=== PATIENT | male | born 1985 | race Caucasian/White ===

== ENCOUNTER 2018-09-18 09:14 | Emergency (ER) | payer MEDICAID ==
[~2018-09-18] VITALS: Ht 175.3 cm; Wt 83.9 kg
--- NOTE | 2018-09-18 09:14 | NUR ---
PT [facility] BLS TO ER BED 09
[2018-09-18 09:17] VITALS: BP 130/73
--- NOTE | 2018-09-18 09:26 | NUR ---
BIB EMS C/O LOW BLOOD SUGAR 55, 77, THEN 133 AFTER ORAL GLUCOSE IN FIELD. NOW 112 AT TIME OF TRIAGE. PT A&OX4. BREATHING EVEN AND UNLABORED. SKIN WARM, PINK, AND DRY. NSR ON HEAD BANQUET WAITER/WAITRESS. DENIES CP/SOB/PAIN. C/O DIZZINESS. STS "I WAS AT [facility]S ASKING FOR FOOD, BUT NO ONE WOULD GIVE ME ANY, SO I CALLED 911." PT STS THAT HE IS HOMELESS AND HAS BEEN WALKING "FOR A WHILE." DR. TORRES AT BEDSIDE TO EVALUATE PT.
--- NOTE | 2018-09-18 09:27 | NUR ---
PT GIVEN HOMELESS COMMUNITY RESOURCE LIST, HYGIENE PACK, AND MEAL.
--- NOTE | 2018-09-18 09:41 | NUR ---
EKG IN PROGRESS
[2018-09-18 09:59] LABS: BASOPHILS % (AUTO) 0.7 % (0.0-2.0); EOSINOPHILS # (AUTO) 0.1 K/uL (0-0.4); EOSINOPHILS % (AUTO) 1.5 % (0.0-4.0); HEMATOCRIT 44.9 % (36-52); LYMPHOCYTES # (AUTO) 1.2 K/uL (2.0-11.5); LYMPHOCYTES % (AUTO) 20.3 % (20.5-51.1); MEAN CORPUSCULAR HEMOGLOBIN 30 pg (27-31); MEAN CORPUSCULAR HGB CONC 33 g/dL (33-37); MEAN CORPUSCULAR VOLUME 91.3 fL (80-94); MONOCYTES # (AUTO) 0.4 K/uL (0.8-1.0); MONOCYTES % (AUTO) 6.5 % (1.7-9.3); NEUTROPHILS # (AUTO) 4.3 K/uL (1.8-7.7); PLATELET COUNT (AUTO) 327 K/uL (140-450); RED BLOOD CELL COUNT(AUTO) 4.92 MIL/uL (4.20-6.10); RED CELL DISTRIBUTION WIDTH 13.5 % (11.6-13.7); WHITE BLOOD COUNT (AUTO) 6.1 K/uL (4.8-10.8)
[2018-09-18 10:08] LABS: ALBUMIN 3.7 g/dL (3.4-5.0); ANION GAP 8.4 (8-16); CARBON DIOXIDE 31.8 mmol/L (21-32); CREATININE 1.2 mg/dL (0.7-1.3); POTASSIUM 4.2 mmol/L (3.5-5.1); TOTAL BILIRUBIN 0.8 mg/dL (0.0-1.0)
--- NOTE | 2018-09-18 10:10 | NUR ---
PT CONSUMED 95% OF MEAL. DIZZINESS DECREASED. PT AMBULATED TO RESTROOM AND BACK TP [facility] WITH STEADY GAIT. URINE SPECIMEN SENT TO LAB.
[2018-09-18 10:30] LABS: BARBITURATE, URINE NEG. ng/ml (NEG <=200); BENZODIAZEPINE, URINE NEG. ng/mL (NEG <=200); CANNABINOID, URINE NEG. ng/mL (NEG <=50); COCAINE, URINE NEG. ng/mL (NEG <=300); OPIATE, URINE NEG. ng/mL (NEG <=2000); PHENCYCLIDINE SCREEN,URINE NEG. ng/mL (NEG <=25)
--- NOTE | 2018-09-18 10:44 | NUR ---
PT RE-EVALUATED BY DR. TORRES. SUGARCANE PLANTER CALLED TO SPEAK TO PT. PT STS HE IS HOMELESS AND HAS NO PLACE TO GO.
--- NOTE | 2018-09-18 11:02 | NUR ---
CALLED MOLDER OFFBEARER AGAIN. SPOKE TO MENDEZ. JAIDEN IS AWARE OF PT'S CONSULT.
--- NOTE | 2018-09-18 11:18 | NUR ---
CALLED SCUTCHER TENDER AGAIN. MENDEZ WILL CALL JAIDEN DIRECTLY. PT AWAITING CONSULT.
--- NOTE | 2018-09-18 11:25 | NUR ---
PT DENIES DIZZINESS. AMBULATED TO RESTROOM AND BACK TO [facility] WITH STEADY GAIT. AWAITING COTTON WASHER CONSULT.
--- NOTE | 2018-09-18 11:29 | NUR ---
[employer] CRISTOFER AT BESIDE.
--- NOTE | 2018-09-18 11:43 | NUR ---
Patient given written and verbal discharge instructions and verbalizes understanding. Given copies of tests performed during visit. Patient is awake, alert and oriented X4. Ambulatory with steady gait. Refuses offer of snf placement. Given list of available shelters in surrounding areas.
--- NOTE | 2018-09-18 11:44 | NUR ---
BUS PASS WAS GIVEN TO PT.
[2018-09-18 11:45] VITALS: BP 110/89
== END 2018-09-18 11:43 | disposition home or self-care (01) ==
LOC: MED 09:14
DX: E16.2 Hypoglycemia, unspecified (principal); F17.200 Nicotine dependence, unspecified, uncomplicated; R03.0 Elevated blood-pressure reading, without diagnosis of hypertension; R94.31 Abnormal electrocardiogram [ECG] [EKG]; Z98.890 Other specified postprocedural states
CPT/HCPCS: 36415; 80053; 80305; 82948; 85025; 93005; 99284

== ENCOUNTER 2018-09-18 18:26 | Emergency (ER) | payer MEDICAID ==
[~2018-09-18] VITALS: Ht 177.8 cm; Wt 81.6 kg
[2018-09-18 18:35] VITALS: BP 134/86
--- NOTE | 2018-09-18 18:37 | NUR ---
TRIAGED TO LOBBY VIA WHEELCHAIR. VSS, NOT IN DISTRESS
--- NOTE | 2018-09-18 20:02 | NUR ---
PT TO ED WITH C/O "CHRONIC DIZZINESS" PT REPORTS BEING SEEN ED EARLIER TODAY AND DX WITH HYPOGLYCEMIA. PT APPEARS TO BE VERY ANXIOUS, STATING "WILL I BECAUSE OF THIS" PT REASSURED THAT HE IS STABLE AT THIS TIME. REMAINS ON CARDIAC MONITORING. PT IN BED, STABLE, PENDING MD MORALES.
--- NOTE | 2018-09-18 20:53 | NUR ---
Dr. Reyes evaluating patient at bedside.
[2018-09-18 21:16] VITALS: BP 119/80
--- NOTE | 2018-09-18 21:16 | NUR ---
Patient discharged with v/s stable. Written and verbal after care instructions given and explained. Patient verbalized understanding. Ambulatory with steady gait. All questions addressed prior to discharge. Advised to follow up with PMD.
== END 2018-09-18 21:16 | disposition home or self-care (01) ==
LOC: MED 18:26
DX: R42 Dizziness and giddiness (principal); E16.2 Hypoglycemia, unspecified; F17.200 Nicotine dependence, unspecified, uncomplicated; Z98.890 Other specified postprocedural states
CPT/HCPCS: 99283